=== PATIENT | male | born 1980 | race Caucasian/White ===

== ENCOUNTER 2018-03-14 22:06 | Emergency (ER) | payer BC ==
[~2018-03-14] VITALS: Ht 177.8 cm; Wt 102.3 kg
[2018-03-14 22:09] VITALS: BP 154/93; TEMP 99.4
[2018-03-14] MEDS ORDERED: ZOFRAN ODT4 MG PO (23:12)
[2018-03-14] MEDS ORDERED: AMOXICILLIN 8751 TAB PO (23:12)
[2018-03-14 23:23] VITALS: PULSE 94
== END 2018-03-14 23:23 | disposition home or self-care (01) ==
LOC: COL.ER 22:06
DX: K61.1 Rectal abscess (principal); Z87.19 Personal history of other diseases of the digestive system